=== PATIENT | male | born 1985 | race Caucasian/White ===

== ENCOUNTER 2018-08-04 22:24 | Emergency (ER) | payer SELFPAY ==
[2018-08-04 22:42] VITALS: O2SAT 100
[2018-08-04] MEDS ORDERED: Sodium Chloride 0.9% 1,000 ML IV STA (23:03)
[2018-08-04] MEDS ORDERED: Sodium Chloride 0.9% 1,000 ML ONE (23:15)
[2018-08-04 23:28] LABS: BASO % 0.2 % (0.0-2.0); EOS # 0.1 K/uL (0.0-0.7); EOS % 0.7 % (0.0-4.0); LYMPH # 1.9 K/uL (1.0-4.3); LYMPH % 16.1 % (20.0-40.0); MEAN CORPUSCULAR HEMOGLOBIN 28.9 pg (27.0-31.0); MEAN CORPUSCULAR HGB CONC 34.4 g/dL (33.0-37.0); MONO # 0.7 K/uL (0.0-0.8); MONO % 5.7 % (0.0-10.0); NEUT # 9.1 K/uL (1.8-7.0); NEUT % 77.3 % (50.0-75.0); RBC 4.84 Mil/uL (4.40-5.90); RED CELL DISTRIBUTION WIDTH 12.8 % (11.5-14.5); WHITE BLOOD COUNT 11.8 K/uL (4.8-10.8)
[2018-08-04 23:33] LABS: SQUAMOUS EPITHIAL < 1 /hpf (0-5); URINE BACTERIA RARE (<OCC); URINE BILIRUBIN NEGATIVE (NEGATIVE); URINE BLOOD 3+ (NEGATIVE); URINE CLARITY Hazy (Clear); URINE COLOR Yellow (YELLOW); URINE GLUCOSE (UA) NORMAL (Normal); URINE LEUKOCYTE ESTERASE NEG Leu/uL (Negative); URINE PROTEIN NEGATIVE (NEGATIVE); URINE UROBILINOGEN NORMAL mg/dL (0.2-1.0)
[2018-08-04 23:34] LABS: ALB/GLOB RATIO 1.4 (1.0-2.1); ALBUMIN 4.3 g/dL (3.5-5.0); ALT/SGPT 35 U/L (21-72); AST/SGOT 27 U/L (17-59); BLOOD UREA NITROGEN 13 mg/dL (9-20); CALCIUM 9.4 mg/dl (8.6-10.4); GFR NON-AFRICAN AMERICAN > 60
--- NOTE | 2018-08-04 23:37 | C.PDOC ---
History Of Present Illness 33 y/o M c PMHx kidney stone p/w L flank pain x 1 hour radiating to L groin, severe, unable to find comfortable position, associated with nausea and vomiting , feels same as previous kidney stone, did not require intervention. Time Seen by Provider: 08/04/18 22:54 Chief Complaint (Nursing): Male Genitourinary Past Medical History Vital Signs: Last Vital Signs Temp 97.5 F L 08/04/18 22:40 Pulse 65 08/04/18 22:40 Resp 18 08/04/18 22:40 BP Pulse Ox 100 08/04/18 23:39 Family History: States: No Known Family Hx - Social History Hx Alcohol Use: No Hx Substance Use: No - Immunization History Hx Tetanus Toxoid Vaccination: No Hx Influenza Vaccination: No Hx Pneumococcal Vaccination: No Review Of Systems Except As Marked, All Systems Reviewed And Found Negative. Constitutional: Negative for: Fever Cardiovascular: Negative for: Chest Pain Physical Exam - Physical Exam Additional Physical Exam Comments: Gen: Appears in distress secondary to pain Head: NC Eyes: No icterus ENT: MMM Neck: Supple Chest: No tenderness CV: Regular rate Lungs: CTA b/l Abd: Soft, NT Back: L CVA tenderness Skin: No rash Extremities: No edema Neuro: Alert, no focal deficit ED Course And Treatment - Laboratory Results Result Diagrams: 08/04/18 23:18 08/04/18 23:18 O2 Sat by Pulse Oximetry: 100 Disposition - Disposition Referrals: Markell Haro Jr., MD [Staff Provider] - [facility] [Outside] Disposition: HOME/ ROUTINE Disposition Time: 00:26 Condition: STABLE Additional Instructions: IMPRESSION: Mild left hydronephrosis hydroureter secondary to a 4 x 3 x 7 mm stone in the proximal ureter. Prescriptions: Acetaminophen [Tylenol 325mg tab] 2 tab PO Q4H #30 tab Famotidine [Pepcid] 1 tab PO BID #14 tab Ibuprofen [Motrin] 600 mg PO Q6 #25 tab Ondansetron ODT [Zofran ODT] 4 mg PO Q8 #12 odt oxyCODONE/Acetaminophen [Percocet 5/325 mg Tab] 1 tab PO Q6 #10 tab Tamsulosin [Flomax] 0.4 mg PO DAILY #5 cap Instructions: Kidney Stones in Adults Forms: [facility] ([place]) - Clinical Impression Clinical Impression: Kidney stone
[2018-08-05 00:37] VITALS: BP 106/67; PULSE 81; RESP 16; TEMP 97.6
--- NOTE | 2018-08-05 07:17 | CT ---
Date of service: 08/04/2018 PROCEDURE: CT Abdomen and Pelvis without intravenous contrast HISTORY: Left flank pain COMPARISON: None. TECHNIQUE: Multiple contiguous axial images were performed through the abdomen and pelvis without the use of intravenous contrast. Subsequently, sagittal and reformatted images were obtained. Radiation dose: Total exam DLP = 404 mGy-cm. This CT exam was performed using one or more of the following dose reduction techniques: Automated exposure control, adjustment of the mA and/or kV according to patient size, and/or use of iterative reconstruction technique. FINDINGS: LOWER THORAX: Unremarkable. LIVER: Unremarkable. No gross lesion or ductal dilatation. GALLBLADDER AND BILE DUCTS: Unremarkable. PANCREAS: Unremarkable. No gross lesion or ductal dilatation. SPLEEN: Unremarkable. ADRENALS: Unremarkable. No mass. KIDNEYS AND URETERS: Mild left hydroureteronephrosis secondary to a 5 millimeter calculus in the proximal ureter. Additional 4 millimeter calculus in the midpole of the left kidney. VASCULATURE: Unremarkable. No aortic aneurysm. BOWEL: Unremarkable. No obstruction. No gross mural thickening. APPENDIX: Unremarkable. Normal appendix. PERITONEUM: Unremarkable. No free fluid. No free air. LYMPH NODES: Unremarkable. No enlarged lymph nodes. BLADDER: Unremarkable. REPRODUCTIVE: Unremarkable. BONES: Few scattered sclerotic foci suggestive for bone islands in the osseous structures for example in the L2 vertebral body measuring 1.4 centimeters and in the left van sacrum measuring 7 millimeters. OTHER FINDINGS: None. IMPRESSION: Mild left hydroureteronephrosis secondary to a 5 millimeter calculus in the proximal ureter. Additional 4 millimeter calculus in the midpole of the left kidney. These findings were preliminarily reported at 12:21 a.m. on 08/05/[address] Darcy Wilburn from [employer].
== END 2018-08-05 00:37 | disposition home or self-care (01) ==
LOC: C.ER 22:24 → SUPCPDRO 22:24 → C.ER 08-05 00:37
DX: N20.0 Calculus of kidney (principal)
CPT/HCPCS: 74176; 80053; 81001; 85025; 87086; 96361; 96374; 96375; 99284; J1885; J2405; J7030

== ENCOUNTER 2018-08-12 09:46 | Emergency (ER) | payer SELFPAY ==
[2018-08-12 10:02] VITALS: TEMP 98.6
[2018-08-12] MEDS ORDERED: Sodium Chloride 0.9% 1,000 ML IV ONE (10:40)
[2018-08-12] MEDS ORDERED: Sodium Chloride 0.9% 1,000 ML ONE (11:19)
[2018-08-12 11:20] LABS: BASO % 0.4 % (0.0-2.0); EOS # 0.2 K/uL (0.0-0.7); EOS % 2.5 % (0.0-4.0); HEMOGLOBIN 14.1 g/dL (12.0-18.0); LYMPH # 1.3 K/uL (1.0-4.3); LYMPH % 19.9 % (20.0-40.0); MEAN CELL VOLUME 84.2 fL (80.0-94.0); MEAN CORPUSCULAR HEMOGLOBIN 28.9 pg (27.0-31.0); MEAN CORPUSCULAR HGB CONC 34.3 g/dL (33.0-37.0); MEAN PLATELET VOLUME 7.9 fL (7.2-11.7); MONO # 0.4 K/uL (0.0-0.8); NEUT # 4.4 K/uL (1.8-7.0); NEUT % 70.2 % (50.0-75.0); RBC 4.88 Mil/uL (4.40-5.90); RED CELL DISTRIBUTION WIDTH 12.6 % (11.5-14.5); WHITE BLOOD COUNT 6.3 K/uL (4.8-10.8)
[2018-08-12 11:21] LABS: URINE BACTERIA RARE (<OCC); URINE BILIRUBIN NEGATIVE (NEGATIVE); URINE BLOOD 2+ (NEGATIVE); URINE CLARITY Clear (Clear); URINE COLOR Straw (YELLOW); URINE GLUCOSE (UA) NORMAL (Normal); URINE LEUKOCYTE ESTERASE NEG Leu/uL (Negative); URINE PROTEIN NEGATIVE (NEGATIVE); URINE UROBILINOGEN NORMAL mg/dL (0.2-1.0)
[2018-08-12 11:35] LABS: ALB/GLOB RATIO 1.4 (1.0-2.1); ALBUMIN 4.1 g/dL (3.5-5.0); ALT/SGPT 33 U/L (21-72); AST/SGOT 23 U/L (17-59); BLOOD UREA NITROGEN 12 mg/dL (9-20); CALCIUM 9.9 mg/dl (8.6-10.4); GFR NON-AFRICAN AMERICAN > 60
--- NOTE | 2018-08-12 12:01 | C.PDOC ---
History Of Present Illness 33-year-old male, presents to the emergency department with complaints of left flank pain. Patient was seen in ED one week ago and diagnosed with kidney stone in ureter, but patient did not follow with urology. Pain has become more constant, prompting visit. Patient denies any nausea/vomiting, numbness/weakness, or any other associated symptoms. no other complaints at this time. Time Seen by Provider: 08/12/18 10:22 Chief Complaint (Nursing): Male Genitourinary History Per: Patient History/Exam Limitations: no limitations Current Symptoms Are (Timing): Still Present Past Medical History Reviewed: Historical Data, Nursing Documentation, Vital Signs Vital Signs: Last Vital Signs Temp 98.6 F 08/12/18 09:59 Pulse 62 08/12/18 12:34 Resp 17 08/12/18 12:34 BP 107/72 08/12/18 12:34 Pulse Ox 100 08/12/18 12:34 - Medical History PMH: Kidney Stones, Chronic Kidney Disease Family History: States: No Known Family Hx - Social History Hx Alcohol Use: No Hx Substance Use: No - Immunization History Hx Tetanus Toxoid Vaccination: No Hx Influenza Vaccination: No Hx Pneumococcal Vaccination: No Review Of Systems Constitutional: Negative for: Fever Respiratory: Negative for: Shortness of Breath Gastrointestinal: Negative for: Nausea, Vomiting Physical Exam - Physical Exam Appears: Non-toxic, No Acute Distress Skin: Warm, Dry, No Rash Head: Atraumatic, Normacephalic Eye(s): bilateral: Normal Inspection, PERRL Nose: Normal Oral Mucosa: Moist Lips: Normal Appearing Neck: Normal ROM Chest: Symmetrical Cardiovascular: Rhythm Regular, No Murmur Respiratory: Normal Breath Sounds, No Accessory Muscle Use Gastrointestinal/Abdominal: Soft, No Tenderness Back: CVA Tenderness (left) Extremity: Normal ROM, No Deformity Neurological/Psych: Oriented x3, Normal Speech ED Course And Treatment - Laboratory Results Result Diagrams: 08/12/18 11:12 08/12/18 11:12 Lab Interpretation: Normal O2 Sat by Pulse Oximetry: 99 Pulse Ox Interpretation: Normal (RA) - Other Rad No standard instances X-Ray: Interpreted by Me Interpretation: Abdomen X-Ray: neg Progress Note: Treated with IVF NSS and toradol. Case discussed with Dr Rudolph who advised follow up after discharge Reassessment Condition: Improved - Physician Consult Information Physician Contacted: Markell Haro Jr. Outcome Of Conversation: follow up in office today Medical Decision Making Medical Decision Making: Case discussed with Dr Rudolph who will evaluate in office after discharge Disposition Discussed With Dr.: Markell Haro Jr. Doctor Will See Patient In The: Hospital - Disposition Referrals: Markell Haro Jr., MD [Staff Provider] - [facility] [Outside] [facility] [Outside] Disposition: HOME/ ROUTINE Disposition Time: 12:30 Condition: STABLE Additional Instructions: Call Dr Haro for further evaluation Instructions: Renal Colic Forms: [employer] (Welsh) - POA Present On Arrival: None - Clinical Impression Clinical Impression: Kidney stone - Scribe Statement The provider has reviewed the documentation as recorded by the Scribe (Lincoln Valentine) All medical record entries made by the Scribe were at my direction and per sonally dictated by me. I have reviewed the chart and agree that the record accurately reflects my personal performance of the history, physical exam, medical decision making, and the department course for this patient. I have also personally directed, reviewed, and agree with the discharge instructions and disposition.
[2018-08-12 12:35] VITALS: BP 107/72; PULSE 62; RESP 17
--- NOTE | 2018-08-12 12:42 | RAD ---
Date of service: 08/12/2018 HISTORY: pain COMPARISON: No prior. FINDINGS: BOWEL: Normal. No obstruction. No free air. BONES: Normal. OTHER FINDINGS: None. IMPRESSION: No active disease.
[2018-08-12 14:43] VITALS: O2SAT 99
== END 2018-08-12 12:38 | disposition home or self-care (01) ==
LOC: C.ER 09:46
DX: N20.0 Calculus of kidney (principal); N18.9 Chronic kidney disease, unspecified
CPT/HCPCS: 74018; 80053; 81001; 85025; 87086; 96361; 96374; 99284; J1885; J7030